=== PATIENT | female | born 2000 | race Caucasian/White ===

== ENCOUNTER 2018-04-25 14:35 | Emergency (ER) | payer SELFPAY ==
[~2018-04-25] VITALS: Ht 132.1 cm; Wt 30.0 kg
[~2018-04-25 14:35] MED LIST: MIGRAINE MEDS
[2018-04-25 14:38] VITALS: BP 148/87; PULSE 105; RESP 16; TEMP 98.2; O2SAT 100
[2018-04-25 15:05] VITALS: RESP 15; O2SAT 98
[2018-04-25] MEDS ORDERED: SODIUM CHLOR 0.9% 1000 ML INJ 1,000 ML IV SCH (15:16)
--- NOTE | 2018-04-25 15:18 | PD ---
HPI Chief Complaint: Abdominal Pain Time Seen by Provider: 15:06 Travel History International Travel<30 days: No Contact w/Intl Traveler<30days: No Traveled to known affect area: No History of Present Illness HPI Patient presents to the emergency department complaining of vomiting intermittently for the past few months. States that she is vomited approximately 2 times a day and having some abdominal discomfort which she attributes to anxiety. Also reporting 1-2 episodes of nonbloody diarrhea. The vomiting has been intermittent. Denies fever, chills. States that she had some vaginal discharge which was brown. Last sex was 3 weeks ago unprotected without a history of STD. Last menstrual period finished yesterday. PFSH Past Medical History Developmental Delay: No Diminished Hearing: No Immunizations Current: Yes Migraines: Yes Tetanus Vaccination: Unknown Influenza Vaccination: No ?: Not LMP: 1 WEEK AGO Past Surgical History Tonsillectomy: Yes (ADNOIDS) Social History Alcohol Use: No Tobacco Use: No Substance Use: No Allergies-Medications (Allergen,Severity, Reaction): Coded Allergies: No Known Allergies (Unverified Adverse Reaction, Unknown, 04/25/18) Reported Meds & Prescriptions Reported Meds & Active Scripts Active Keflex (Cephalexin) 500 Mg Cap 500 Mg PO Q12H 5 Days Reported [Migraine Meds] Review of Systems Except as stated in HPI: all other systems reviewed are Neg Physical Exam Narrative GENERAL: No acute distress. SKIN: Focused skin assessment warm/dry. HEAD: Atraumatic. Normocephalic. EYES: Pupils equal and round. No scleral icterus. No injection or drainage. ENT: No nasal bleeding or discharge. Mucous membranes pink and moist. NECK: Trachea midline. No JVD. CARDIOVASCULAR: Regular rate and rhythm. No murmur appreciated. RESPIRATORY: No accessory muscle use. Clear to auscultation. Breath sounds equal bilaterally. GASTROINTESTINAL: Abdomen soft, right upper quadrant and epigastric tenderness, nondistended. Hepatic and splenic margins not palpable. MUSCULOSKELETAL: No obvious deformities. No clubbing. No cyanosis. No edema. NEUROLOGICAL: Awake and alert. No obvious cranial nerve deficits. Motor grossly within normal limits. Normal speech. PSYCHIATRIC: Appropriate mood and affect; insight and judgment normal. Pelvic: No CMT or adnexal tenderness, positive yellowish/whitish discharge Data Data Last Documented VS Vital Signs Date Time Temp Pulse Resp B/P (MAP) Pulse Ox O2 Delivery O2 Flow Rate FiO2 04/25/18 15:05 15 98 Room Air 04/25/18 14:38 98.2 105 148/87 (107) Orders Orders Complete Blood Count With Diff (04/25/18 15:16) Comprehensive Metabolic Panel (04/25/18 15:16) Lipase (04/25/18 15:16) Urinalysis - C+S If Indicated (04/25/18 15:16) Ct Abd/Pel W Iv Contrast(Rout) (04/25/18 15:16) Iv Access Insert/Monitor (04/25/18 15:16) Ecg Monitoring (04/25/18 15:16) Oximetry (04/25/18 15:16) Sodium Chlor 0.9% 1000 Ml Inj (Ns 1000 M (04/25/18 15:16) Sodium Chloride 0.9% Flush (Ns Flush) (04/25/18 15:30) Ed Urine Pregnancytest Poc (04/25/18 15:16) Gc And Chlamydia Pcr (04/25/18 15:19) Wet Prep Profile (04/25/18 15:19) Urine Culture (04/25/18 15:38) Iohexol 350 Inj (Omnipaque 350 Inj) (04/25/18 17:07) Ceftriaxone Inj (Rocephin Inj) (04/25/18 17:15) Labs Laboratory Tests Test 04/25/18 15:33 04/25/18 15:38 04/25/18 16:40 White Blood Count 17.8 TH/MM3 Red Blood Count 4.98 MIL/MM3 Hemoglobin 14.3 GM/DL Hematocrit 41.6 % Mean Corpuscular Volume 83.5 FL Mean Corpuscular Hemoglobin 28.8 PG Mean Corpuscular Hemoglobin Concent 34.5 % Red Cell Distribution Width 13.5 % Platelet Count 386 TH/MM3 Mean Platelet Volume 7.5 FL Neutrophils (%) (Auto) 80.7 % Lymphocytes (%) (Auto) 11.8 % Monocytes (%) (Auto) 3.9 % Eosinophils (%) (Auto) 1.1 % Basophils (%) (Auto) 2.5 % Neutrophils # (Auto) 14.4 TH/MM3 Lymphocytes # (Auto) 2.1 TH/MM3 Monocytes # (Auto) 0.7 TH/MM3 Eosinophils # (Auto) 0.2 TH/MM3 Basophils # (Auto) 0.4 TH/MM3 CBC Comment DIFF FINAL Differential Comment Blood Urea Nitrogen 7 MG/DL Creatinine 0.77 MG/DL Random Glucose 88 MG/DL Total Protein 9.1 GM/DL Albumin 4.2 GM/DL Calcium Level 9.4 MG/DL Alkaline Phosphatase 65 U/L Aspartate Amino Transf (AST/SGOT) 20 U/L Alanine Aminotransferase (ALT/SGPT) 29 U/L Total Bilirubin 0.6 MG/DL Sodium Level 137 MEQ/L Potassium Level 3.6 MEQ/L Chloride Level 104 MEQ/L Carbon Dioxide Level 23.1 MEQ/L Anion Gap 10 MEQ/L Estimat Glomerular Filtration Rate 97 ML/MIN Lipase 126 U/L Urine Collection Type CLEAN CATCH Urine Color YELLOW Urine Turbidity CLEAR Urine pH 6.0 Urine Specific [place] 1.015 Urine Protein NEG mg/dL Urine Glucose (UA) NEG mg/dL Urine Ketones 40 mg/dL Urine Occult Blood MOD Urine Nitrite NEG Urine Bilirubin NEG Urine Urobilinogen 0.2 MG/DL Urine Leukocyte Esterase SMALL Urine RBC 4-9 /hpf Urine WBC 9-14 /hpf Urine Squamous Epithelial Cells 6-8 /hpf Urine Bacteria MOD /hpf Microscopic Urinalysis Comment CULTURE INDICATED Clue Cells (Wet Prep) NONE SEEN Vaginal Trichomonas (Wet Prep) NONE SEEN Vaginal Yeast (Wet Prep) NONE SEEN MDM Medical Decision Making Medical Screen Exam Complete: Yes Emergency Medical Condition: Yes Interpretation(s) Labs: Elevated WBC count and UTI Last Impressions Abdomen/Pelvis CT 04/25/18 1516 Signed Impressions: CONCLUSION: 1. No acute findings on abdomen and pelvic CT. Differential Diagnosis Pancreatitis, cholecystitis, irritable bowel syndrome, gastritis, ulcer disease , anxiety related Narrative Course Patient presents to the emergency department complaining of intermittent nausea , vomiting, abdominal discomfort, diarrhea for the past few months. Patient placed on residential monitor, IV access obtained, and labs/IV fluids/CT scan ordered. 1716: 1 g Rocephin IV ordered for UTI. Diagnosis Primary Impression: Urinary tract infection Qualified Codes: N39.0 - Urinary tract infection, site not specified Referrals: [facility] Patient Instructions: General Instructions, Kidney Infection (ED) Additional Instructions: 1. Meds as directed. 2. Follow-up in 24-48 hours for reevaluation. 3. Return to the ER immediately immediately for fever, vomiting, abdominal pain, inability to urinate, or for any new/worrisome/worsening symptoms. Med/Other Pt SpecificInfo: Prescription(s) given Scripts Cephalexin (Keflex) 500 Mg Cap 500 MG PO Q12H for Infection for 5 Days, #10 CAP 0 Refills Prov: Corrine Alvarado MD 04/25/18 Disposition: 01 DISCHARGE HOME Condition: Stable Corrine Alvarado MD Apr 25, 2018 15:18
[2018-04-25] MEDS ORDERED: SODIUM CHLORIDE 0.9% FLUSH 10 ML FLUSH IV FLUSH PRN (15:30)
[2018-04-25 15:39] LABS: AUTOMATED NEUTROPHIL # 14.4 TH/MM3 (1.8-7.7); BASOPHIL # 0.4 TH/MM3 (0-0.2); BASOPHIL % 2.5 % (0.0-2.0); EOSINOPHIL # 0.2 TH/MM3 (0-0.4); EOSINOPHIL % 1.1 % (0.0-4.0); HEMATOCRIT 41.6 % (35.0-46.0); HEMOGLOBIN 14.3 GM/DL (11.6-15.3); LYMPH % 11.8 % (9.0-44.0); LYMPHOCYTE # 2.1 TH/MM3 (1.0-4.8); MEAN CELL VOLUME 83.5 FL (80.0-100.0); MEAN CORPUSCULAR HEMOGLOBIN 28.8 PG (27.0-34.0); MEAN CORPUSCULAR HGB CONC 34.5 % (32.0-36.0); MEAN PLATELET VOLUME 7.5 FL (7.0-11.0); MONO % 3.9 % (0.0-8.0); MONOCYTE # 0.7 TH/MM3 (0-0.9); NEUT % 80.7 % (16.0-70.0); PLATELET COUNT 386 TH/MM3 (150-450); RED BLOOD COUNT 4.98 MIL/MM3 (4.00-5.30); RED CELL DISTRIBUTION WIDTH 13.5 % (11.6-17.2); WHITE BLOOD COUNT 17.8 TH/MM3 (4.0-11.0)
[2018-04-25 15:43] LABS: BILIRUBIN, URINE NEG (NEG); BLOOD, URINE MOD (NEG); GLUCOSE,URINE NEG (NEG); KETONE, URINE 40 mg/dL (NEG); NITRITE,URINE NEG (NEG); URINE COLOR YELLOW (YELLW/STRAW); URINE LEUKOCYTE ESTERASE SMALL (NEG)
[2018-04-25 15:48] LABS: BACTERIA, URINE MOD /hpf
[2018-04-25 15:50] LABS: CHLORIDE 104 MEQ/L (98-107); SODIUM (NA) 137 MEQ/L (136-145)
[2018-04-25 15:53] LABS: CALCIUM 9.4 MG/DL (8.5-10.1)
[2018-04-25 15:54] LABS: ALBUMIN 4.2 GM/DL (3.4-5.0); BICARBONATE 23.1 MEQ/L (21.0-32.0); BLOOD UREA NITROGEN 7 MG/DL (7-18); GLUCOSE,RANDOM 88 MG/DL (74-106)
[2018-04-25 15:56] LABS: ALT (GPT) 29 U/L (9-42); AST (GOT) 20 U/L (16-38)
[2018-04-25 15:57] LABS: CREATININE 0.77 MG/DL (0.50-1.00); GLOMERULAR FILTRATION RATE 97 ML/MIN (>89)
[2018-04-25 15:58] LABS: TOTAL BILIRUBIN ADULT 0.6 MG/DL (0.2-1.0); TOTAL PROTEIN 9.1 GM/DL (6.4-8.2)
[2018-04-25 15:59] LABS: ALKALINE PHOSPHATASE 65 U/L (45-117)
[2018-04-25] MEDS ORDERED: IOHEXOL 350 MG/ML 10 ML VIAL (for RAD DIAG) IVCONTRAST ONE (17:07)
[2018-04-25] MEDS ORDERED: cefTRIAXone INJ 1,000 MG in SODIUM CHLORIDE 0.9% INJ 100 ML IV ONE (17:15)
[2018-04-25] MEDS ORDERED: CEPH-460 PO (17:17)
--- NOTE | 2018-04-25 17:22 | RADRPT ---
EXAM DATE: 04/25/2018 5:11 PM EDT AGE/SEX: 17 years / Female INDICATIONS: Abdominal discomfort and vomiting intermittently for the past few months. CLINICAL DATA: This is the patient's initial encounter. Patient reports that signs and symptoms have been present for 3 months and indicates a pain score of 5/10. MEDICAL/SURGICAL HISTORY: None. None. ORAL CONTRAST: No oral contrast ingested. RADIATION DOSE: 6.41 CTDI (mGy) COMPARISON: No prior exams available for comparison. TECHNIQUE: Multiple contiguous axial images were obtained through the abdomen and pelvis following b olus infusion of 75 ml Omnipaque 350 (iohexol) nonionic water-soluble contrast as a single exam dos e. No oral contrast ingested. Using automated exposure control and adjustment of the mA and/or kV ac cording to patient size, the radiation dose was kept as low as reasonably achievable to obtain optima l diagnostic quality images. FINDINGS: Lung bases are clear. No acute findings in the liver, spleen, adrenals, kidneys or pancreas. There is no free fluid. No bowel obstruction. No adenopathy. No pelvic masses. No acute bony abnormalities. CONCLUSION: 1. No acute findings on abdomen and pelvic CT. Electronically signed by: Juan Francisco Luna MD 04/25/2018 5:21 PM EDT
[2018-04-25 18:15] VITALS: BP 130/76; PULSE 80; RESP 16; O2SAT 97
== END 2018-04-25 18:38 | disposition home or self-care (01) ==
LOC: PHED 14:35
DX: N39.0 Urinary tract infection, site not specified (principal); R11.2 Nausea with vomiting, unspecified; R19.7 Diarrhea, unspecified; N89.8 Other specified noninflammatory disorders of vagina
CPT/HCPCS: 74177; 80053; 81001; 83690; 84703; 85025; 87086; 87210; 87491; 87591; 96361; 96365; 99284; J0696; J7030; Q9967